=== PATIENT | male | born 1965 | race Caucasian/White ===

== ENCOUNTER 2016-11-30 14:47 | Emergency (ER) | payer BC ==
[2016-11-30 15:02] VITALS: BMI 27.4
--- NOTE | 2016-11-30 16:04 | DIRPT ---
CLINICAL DATA: Pneumonia. EXAM: CHEST 2 VIEW COMPARISON: November 29, 2016. FINDINGS: The heart size and mediastinal contours are within normal limits. No pneumothorax or pleural effusion is noted. Stable minimal interstitial opacities are noted in both lung bases concerning for subsegmental atelectasis, pneumonia or scarring. The visualized skeletal structures are unremarkable. IMPRESSION: Stable minimal bibasilar interstitial opacities concerning for subsegmental atelectasis, pneumonia or scarring. Electronically Signed By: Sumanth Steen Jr, M.D. On: 11/30/2016 16:02
[2016-11-30 16:32] VITALS: TEMP 98.3
[2016-11-30] MEDS ORDERED: SODIUM CHLORIDE 0.9% 10 ML FLUSH FLUSH PRN (16:37)
[2016-11-30] MEDS ORDERED: ONDANSETRON HCL 4 MG/2 ML VIAL IV ONE (16:47)
[2016-11-30] MEDS ORDERED: METHYLPREDNISOLONE 125 MG/2 ML VIAL IV ONE (16:47)
[2016-11-30] MEDS ORDERED: ALBUTEROL 0.083% 3 ML NEB NEB ONE (16:47)
--- NOTE | 2016-11-30 16:52 | EDPRACDOC ---
- General Information Information Source: Patient, Family - History of Present Illness Onset: 5-6 days HPI: Pt c/o generalized weakness, bloody productive cough, congestion, sob, n/v/d, body aches, ringing in ears x 5-6 days. Pt states went tp PCP was dx with PNA yesterday and given avelox. Pt not improving so PCP told to come to ED. Denies sore throat, abd pain, changes in bladder ,rash. Shortness of Breath: Mild Relevant History: Reports: None Cough: Reports: Productive, Bloody Rhinorrhea: Reports: Clear Ear Symptoms: Reports: Tinnitus SOB Worsens with: Reports: Movement, Coughing SOB Improves with: Reports: Nothing Associated Signs and symptoms: Reports: Cough, Nasal Symptoms, Nausea, Vomiting , Diarrhea, Myalgia <Deidre Iniguez - Last Filed: 11/30/16 18:42> <Jamie Garay - Last Filed: 11/30/16 20:42> - General Information Chief Complaint: Dyspnea/Resp distress Stated Complaint: DX WITH PNEUMONIA YESTERDAY SHOB WEAKNESS Time Seen by Provider: 11/30/16 16:36 Home Medications: Home Medications Guaifenesin-Dextromethorphan [Mucinex Dm] 1 each PO BID 11/30/16 Guaifenesin/Codeine Phosphate [Cheratussin AC Syrup] 5 ml PO Q4-6H PRN 11/30/16 Moxifloxacin HCl [Avelox] 400 mg PO DAILY 11/30/16 Mv,Minerals/FA/Lycopene/Ginkgo [One Daily For Men 50+ Adv Tab] 1 tab PO DAILY Allergies/Adverse Reactions: Allergies Allergy/AdvReac Type Severity Reaction Status Date / Time No Known Allergies Allergy Verified 11/30/16 14:59 ED Past Medical History - History Reviewed Yes Nurses notes reviewed and agree except as marked - Social Medical History Smoking Status: Never smoker ETOH: None Substance Abuse: None <Deidre Iniguez - Last Filed: 11/30/16 18:42> EDM Review of Systems - Review of Systems Constitutional: Chills, Weakness Ears: Tinnitus Throat: No Symptoms Reported. negative: Pain, Swelling Nose: Congestion Mouth: No Symptoms Reported. negative: Pain, Drooling Respiratory: Cough, Shortness of Breath Cardiovascular: Chest Pain Gastrointestinal: Diarrhea, Nausea, Vomiting Genitourinary: No Symptoms Reported. negative: Dysuria, Hematuria, Frequency, Discharge, Bleeding, Testicular Pain, Neurological: Headache Musculoskeletal: Other (body aches) Integumentary: No Symptoms Reported. negative: Itching, Rash, Bruising, Wound Allergic/Immunologic: No Symptoms Reported. negative: Hives, Itching Hematologic: No Symptoms Reported. negative: Lymphadenopathy, Easy Bruising, Easy Bleeding Psychiatric: No Symptoms Reported. negative: Anxiety, Depression, Hallucinations, Insomnia, Suicidal <Deidre Iniguez - Last Filed: 11/30/16 18:42> - Physical Exam Constitutional: Alert Oriented to: Time, Person, Place Last recorded Vital Signs: Last Vital Signs Temp 98.3 F 11/30/16 16:29 Pulse 53 L 11/30/16 16:29 Resp 18 11/30/16 16:29 BP 112/56 L 11/30/16 16:29 Pulse Ox 95 11/30/16 16:29 Oxygen Pulse Oxygen Saturation 95 O2 Device Room Air Oxygen Flow Rate Fraction of Inspired Oxygen ( FIO2) - HEENT Head: Normal ( normocephalic) Eye Exam: Normal (PERRL, EOMI, Sclera white) Oropharynx: Normal (Pharynx:Moist without exudate,Gums-no swelling) Tympanic Membrane: Normal ENT EAC: Normal Nose: Congestion Neck: Normal (FROM, trachea at midline) - Respiratory/Cardiovascular Respiratory: Normal - CTA (BBS clear to auscultation without adventitious sounds ) Cardiovascular: Normal (RRR without murmur, gallop or rub) - GI Auscultation: Normal (NABS) Palpation: Normal (Soft,No rebound or guarding, non distended) Tenderness: Non tender - Musculoskeletal Back: Normal (Non-Tender) Extremities: Normal (Normal tone, Pulses 2+ No cyanosis or edema, FROM) - Integumentary Skin: Normal, Warm, Dry Lymphatics: Normal (no adenopathy) - Neurologic Memory Impaired: Normal Motor Function: Normal (Normal tone, Pulses 2+ No cyanosis or edema, FROM) Mood Description: Normal Perception: Normal <Deidre Iniguez - Last Filed: 11/30/16 18:42> - Physical Exam Last recorded Vital Signs: Last Vital Signs Temp 98.3 F 11/30/16 16:29 Pulse 58 L 11/30/16 20:30 Resp 18 11/30/16 20:30 BP 121/68 11/30/16 20:30 Pulse Ox 94 11/30/16 20:30 Oxygen Pulse Oxygen Saturation 94 O2 Device Room Air Oxygen Flow Rate Fraction of Inspired Oxygen ( FIO2) <Jamie Garay - Last Filed: 11/30/16 20:42> ED SOB MDM - Differential Diagnosis Differential Diagnosis: Heart Failure, Pnuemonia, URI, Other (influenza) - Results Result Diagrams: 11/30/16 16:49 11/30/16 16:49 - EKG EKG #1 EKG Time: 16:48 Rate: bpm: 55 Rhythm: SB Block: None ST: Normal Comparison: 01/22/12 (no significant change) - Diagnostic Imaging Chest Image interpreted by: Radiologist Diagnostic Imaging Comments: IMPRESSION: Stable minimal bibasilar interstitial opacities concerning for subsegmental atelectasis, pneumonia or scarring. - Additional Information Additional Information: Final disposition of care given to Dr Garay at 1843 <Deidre Iniguez - Last Filed: 11/30/16 18:42> - Results Result Diagrams: 11/30/16 16:49 11/30/16 16:49 Results: WBC 3.8 xk/uL (3.8-10.8) 11/30/16 16:49 RBC 4.50 xM/uL (4.70-6.10) L 11/30/16 16:49 Hgb 13.4 g/dL (14.0-18.0) L 11/30/16 16:49 Hct 39.8 % (42-52) L 11/30/16 16:49 MCV 88 fL (80-94) 11/30/16 16:49 MCH 29.8 pg (27-32) 11/30/16 16:49 MCHC 33.7 g/dl (33-36) 11/30/16 16:49 RDW 12.7 % (11.5-14.5) 11/30/16 16:49 Plt Count 202 xk/uL (130-400) 11/30/16 16:49 MPV 7.6 fL (7.4-10.4) 11/30/16 16:49 Neut % (Auto) 45.1 % (45-76) 11/30/16 16:49 Lymph % (Auto) 37.1 % (17-44) 11/30/16 16:49 [place] % (Auto) 16.9 % (3-10) H 11/30/16 16:49 Eos % (Auto) 0.4 % (0-5) 11/30/16 16:49 Baso % (Auto) 0.5 % (0-2) 11/30/16 16:49 Absolute Neuts (auto) 1.71 xk/uL (1.7-8.2) 11/30/16 16:49 Absolute Lymphs (auto) 1.41 xk/uL (0.65-4.75) 11/30/16 16:49 PT 10.0 SEC (9.2-11.2) 11/30/16 16:49 INR 1.0 11/30/16 16:49 APTT 24.6 SEC (22-35) 11/30/16 16:49 Puncture Site Left radial 11/30/16 17:07 pH 7.470 pH UNITS (7.35-7.45) H 11/30/16 17:07 pCO2 33.0 mmHg (35-45) L 11/30/16 17:07 pO2 128.0 mmHg (80-100) H 11/30/16 17:07 HCO3 24.0 MMOL/L (22-26) 11/30/16 17:07 Total CO2 25.0 MMOL/L (23-27) 11/30/16 17:07 Base Excess 0.9 (+/- 2) 11/30/16 17:07 FiO2 % 21% 11/30/16 17:07 Specimen Drawn By Kasgl 11/30/16 17:07 Sodium 140 mEq/L (137-146) 11/30/16 16:49 Potassium 4.3 mEq/L (3.5-5.1) 11/30/16 16:49 Chloride 102 mEq/L (98-107) 11/30/16 16:49 Carbon Dioxide 27 mMOL/L (22-33) 11/30/16 16:49 Anion Gap 15 mEq/L (8-16) 11/30/16 16:49 BUN 22 MG/DL (9-20) H 11/30/16 16:49 Creatinine 0.90 MG/DL (0.66-1.25) 11/30/16 16:49 Estimated GFR (MDRD) > 60 mL/min (>=60) 11/30/16 16:49 Glucose 105 MG/DL (70-99) H 11/30/16 16:49 Calculated Osmolality 272 MOs/Kg (270-290) 11/30/16 16:49 Lactic Acid 1.4 mEq/L (0.7-2.1) 11/30/16 16:49 Calcium 9.1 MG/DL (8.4-10.2) 11/30/16 16:49 Total Bilirubin 0.6 MG/DL (0.2-1.3) 11/30/16 16:49 AST 52 IU/L (17-59) 11/30/16 16:49 ALT 47 IU/L (21-72) 11/30/16 16:49 Alkaline Phosphatase 57 IU/L (38-126) 11/30/16 16:49 Troponin I < 0.01 ng/mL (<.04) 11/30/16 16:49 Shb-C-Pjxhfhalypl Pept 76 pg/mL (0-900) 11/30/16 16:49 Total Protein 7.8 G/DL (6.3-8.2) 11/30/16 16:49 Albumin 4.1 G/DL (3.5-5.0) 11/30/16 16:49 Microbiology 11/30/16 18:45 Influenza Type A Antigen Screen - Final N/P - Naso/Pharyngeal NEGATIVE Please note: A NEGATIVE result does not exclude an influenza virus infection. It is a presumptive result and, if required, confirmation should be done using either a virus culture or an FDA-cleared influenza A&B molecular assay. ("NORMAL" value = "NEGATIVE".) Influenza Type B Antigen Screen - Final NEGATIVE Please note: A NEGATIVE result does not exclude an influenza virus infection. It is a presumptive result and, if required, confirmation should be done using either a virus culture or an FDA-cleared influenza A&B molecular assay. ("NORMAL" value = "NEGATIVE".) Lab Results 11/30/16 11/30/16 11/30/16 17:07 16:49 16:49 WBC 3.8 RBC 4.50 L Hgb 13.4 L Hct 39.8 L MCV 88 MCH 29.8 MCHC 33.7 RDW 12.7 Plt Count 202 MPV 7.6 Neut % (Auto) 45.1 Lymph % (Auto) 37.1 [place] % (Auto) 16.9 H Eos % (Auto) 0.4 Baso % (Auto) 0.5 Absolute Neuts (auto) 1.71 Absolute Lymphs (auto) 1.41 PT 10.0 INR 1.0 APTT 24.6 Puncture Site Left radial pH 7.470 H pCO2 33.0 L pO2 128.0 H HCO3 24.0 Total CO2 25.0 Base Excess 0.9 FiO2 % 21% Specimen Drawn By Kasgl Sodium Potassium Chloride Carbon Dioxide Anion Gap BUN Creatinine Estimated GFR (MDRD) Glucose Calculated Osmolality Lactic Acid Calcium Total Bilirubin AST ALT Alkaline Phosphatase Troponin I Nre-W-Kekymftdlad Pept Total Protein Albumin 11/30/16 11/30/16 16:49 16:49 WBC RBC Hgb Hct MCV MCH MCHC RDW Plt Count MPV Neut % (Auto) Lymph % (Auto) [place] % (Auto) Eos % (Auto) Baso % (Auto) Absolute Neuts (auto) Absolute Lymphs (auto) PT INR APTT Puncture Site pH pCO2 pO2 HCO3 Total CO2 Base Excess FiO2 % Specimen Drawn By Sodium 140 Potassium 4.3 Chloride 102 Carbon Dioxide 27 Anion Gap 15 BUN 22 H Creatinine 0.90 Estimated GFR (MDRD) > 60 Glucose 105 H Calculated Osmolality 272 Lactic Acid 1.4 Calcium 9.1 Total Bilirubin 0.6 AST 52 ALT 47 Alkaline Phosphatase 57 Troponin I < 0.01 Vzl-E-Oeannvwmeyt Pept 76 Total Protein 7.8 Albumin 4.1 <Jamie Garay - Last Filed: 11/30/16 20:42> - Departure Education/Counseling Given To: Patient Education/Counseling Given Regarding: Diagnosis, Treatment <Deidre Iniguez - Last Filed: 11/30/16 18:42> Decision Time to Discharge: 20:33 - Departure Yes I personally saw and evaluated the patient. <Jamie Garay - Last Filed: 11/30/16 20:42> - Departure Condition: Stable Final Diagnosis: CAP (community acquired pneumonia), Influenza-like symptoms Pneumonia Qualifiers: Pneumonia type: due to unspecified organism Laterality: left Lung location: lower lobe of lung Qualified Code(s): J18.1 - Lobar pneumonia, unspecified organism Instructions: Bacterial Pneumonia (ED) Referrals: Kamran Teran MD [Primary Care Provider] - One Week Prescriptions: No Action Guaifenesin-Dextromethorphan [Mucinex Dm] 1 each PO BID Moxifloxacin HCl [Avelox] 400 mg PO DAILY Guaifenesin/Codeine Phosphate [Cheratussin AC Syrup] 5 ml PO Q4-6H PRN PRN Reason: Cough Mv,Minerals/FA/Lycopene/Ginkgo [One Daily For Men 50+ Adv Tab] 1 tab PO DAILY
[2016-11-30 17:10] LABS: AUTOMATED BASOPHIL 0.5 % (0-2); AUTOMATED EOSINOPHIL 0.4 % (0-5); AUTOMATED LYMPH 37.1 % (17-44); AUTOMATED MONOCYTE 16.9 % (3-10); AUTOMATED NEUTROPHIL 45.1 % (45-76); MPV 7.6 fL (7.4-10.4)
[2016-11-30 17:11] LABS: ALLEN'S TEST PASS; BEb 0.9 (+/- 2)
[2016-11-30 17:14] LABS: ABG Draw Site Left Radial
[2016-11-30 17:34] LABS: BLOOD UREA NITROGEN 22 MG/DL (9-20); CALCIUM 9.1 MG/DL (8.4-10.2); CALCULATED OSMOLALITY 272 MOs/Kg (270-290); CHLORIDE 102 mEq/L (98-107); GLUCOSE 105 MG/DL (70-99); SODIUM LEVEL 140 mEq/L (137-146); TOTAL PROTEIN 7.8 G/DL (6.3-8.2)
[2016-11-30 17:45] LABS: PARTIAL THROMB. TIME 24.6 SEC (22-35)
[2016-11-30] MEDS ORDERED: NS 1,000 ML IV ONE (17:47)
--- NOTE | 2016-11-30 20:22 | DIRPT ---
CLINICAL DATA: Cough. Abnormal chest x-ray. Initial encounter. EXAM: CT CHEST WITHOUT CONTRAST TECHNIQUE: Multidetector CT imaging of the chest was performed following the standard protocol without IV contrast. COMPARISON: PA and lateral chest 11/29/2016 and 11/30/2016. Single view of the chest 01/22/2012. FINDINGS: No axillary, hilar or mediastinal lymphadenopathy is identified. Heart size is upper normal. No pleural or pericardial effusion. The lungs demonstrate dependent airspace disease in the bases bilaterally, worse on the left, where air bronchograms are identified. No pulmonary nodule or mass is seen. Airways are unremarkable. Visualized upper abdomen shows fatty infiltration of the liver. Scattered mild appearing thoracic spondylosis is noted. No lytic or sclerotic bony lesion is seen. IMPRESSION: Findings suspicious for left lower lobe pneumonia where there is dependent basilar airspace disease with air bronchograms. Dependent airspace disease in the right lower lobe has an appearance most compatible with atelectasis. Fatty infiltration of the liver. Electronically Signed By: Jose Guadalupe Levy M.D. On: 11/30/2016 20:19
[2016-11-30] MEDS ORDERED: ALBUTEROL 6.7 GM MDI INH ONE (20:35)
[2016-11-30 21:11] VITALS: BP 128/67; PULSE 72
== END 2016-11-30 21:11 | disposition home or self-care (01) ==
LOC: ED 14:47
DX: J18.9 Pneumonia, unspecified organism (principal)
CPT/HCPCS: 36415; 36600; 71020; 71250; 80053; 82803; 83605; 83880; 84484; 85025; 85610; 85730; 87040; 87804; 93005; 94640; 96361; 96374; 96375; 99284; J2405; J2930; J3490